=== PATIENT | female | born 1940 | race Caucasian/White ===

== ENCOUNTER 2020-04-16 15:25 | Inpatient (IN) | payer MEDICARE ==
[~2020-04-16] VITALS: Ht 147.3 cm; Wt 98.3 kg
[2020-04-16 16:27] LABS: ALANINE AMINOTRANSFERASE 55 U/L (12-78); ALBUMIN 3.4 g/dL (3.4-5.0); ANION GAP 12 mmol/L (5-15); CALCIUM 8.6 mg/dL (8.5-10.1); CHLORIDE 100 mmol/L (98-107)
[2020-04-16 16:30] LABS: ALKALINE PHOSPHATASE 111 U/L (45-117); BILIRUBIN,TOTAL 0.5 mg/dL (0.2-1.0); TOTAL PROTEIN 7.9 g/dL (6.4-8.2)
[2020-04-16] MEDS ORDERED: ONDANSETRON 2MG/ML, 2ML IVPush ONE (16:30)
[2020-04-16] MEDS ORDERED: SODIUM CHLORIDE 0.9% 1,000ML IVBOLUS ONE ×2 (16:30→18:30)
[2020-04-16] MEDS ORDERED: SODIUM CHLORIDE FLUSH 10ML SYR IVF ONE (16:30)
[2020-04-16 16:33] LABS: MICROSCOPIC INDICATED
[2020-04-16 16:36] LABS: BASOPHILS # (AUTO) 0.03 x10^3/uL (0-0.1); BASOPHILS % (AUTO) 0 % (0-1); EOSINOPHILS # (AUTO) 0.09 x10^3/uL (0-0.4); EOSINOPHILS % (AUTO) 1 % (1-7); LYMPHOCYTES # (AUTO) 1.67 x10^3/uL (1-3.4); LYMPHOCYTES % (AUTO) 22 % (22-44); MD NO; MEAN CORPUSCULAR HEMOGLOBIN 29.7 pg (27.0-34.8); MEAN CORPUSCULAR HGB CONC 32.6 g/dL (32.4-35.8); MEAN PLATELET VOLUME 9.4 fL (7.4-10.4); MONOCYTES # (AUTO) 0.61 x10^3/uL (0.2-0.8); MONOCYTES % (AUTO) 8 % (2-9); NEUTROPHILS # (AUTO) 5.13 x10^3/uL (1.8-6.8); NEUTROPHILS % (AUTO) 68 % (42-75); PLATELET COUNT 224 x10^3/uL (130-400); RED BLOOD COUNT 5.03 x10^6/uL (3.82-5.3); RED CELL DISTRIBUTION WIDTH 14.2 % (9.6-15.2)
[2020-04-16] MEDS ORDERED: ONDANSETRON 2MG/ML, 2ML ONE (16:40)
--- NOTE | 2020-04-16 16:42 | NUR ---
PLACED ON MONITOR, NSR, VSS. IV STARTED LABS SENT, IVF 500 PER ORDER. URINE SENT. PT A/OX4, SLIGHT NASUEATED, MEDICATED PER ORDER. NAD. WILL CONTINUE TO MONITOR. AIDET PROVIDED.
--- NOTE | 2020-04-16 17:30 | NUR ---
LAB HERE DRAWING, ABG AND REPEAT LABS.
[2020-04-16 17:42] LABS: PH, VENOUS 7.138 pH (7.320-7.420)
[2020-04-16] MEDS ORDERED: SULF1TAB23 PO (17:46)
[2020-04-16] MEDS ORDERED: TAMS-11 PO (17:48)
[2020-04-16] MEDS ORDERED: ROSU40TA PO (17:50)
[2020-04-16] MEDS ORDERED: VITAMIN D3 (17:59)
[2020-04-16] MEDS ORDERED: CALC600T23 PO (17:59)
[2020-04-16] MEDS ORDERED: HUMALOG PUMP (18:00)
[2020-04-16] MEDS ORDERED: VITAMIN C PO (18:01)
[2020-04-16] MEDS ORDERED: GLUC3SPR NS (18:01)
[2020-04-16 18:02] LABS: FIO2 ROOM AIR %
[2020-04-16] MEDS ORDERED: CARV6.2512 PO (18:02)
[2020-04-16] MEDS ORDERED: CPAP (18:02)
[2020-04-16] MEDS ORDERED: ASPI81TA45 PO (18:04)
--- NOTE | 2020-04-16 18:17 | NUR ---
PT WITH PERIODS OF CONFUSION, WANTING TO PUT HER INSULIN PUMP BACK ON. CALLED WILL [employer] ST[employer]ER INSULIN AND PUMP. INFORMED PT TO STAY. ADIET PROVIDED.
[2020-04-16 18:32] LABS: ACETONE, SERUM Moderate(40mg/dL) (Negative)
--- NOTE | 2020-04-16 19:59 | NUR ---
BG 445
[2020-04-16] MEDS ORDERED: ONDANSETRON 2MG/ML, 2ML IVPush PRN (20:00)
[2020-04-16] MEDS ORDERED: ACETAMINOPHEN 325 MG TABLET PO PRN (20:00)
[2020-04-16] MEDS ORDERED: BISACODYL 10 MG SUPP PR PRN (20:00)
[2020-04-16] MEDS: SODIUM CHLORIDE 0.9% 1,000 ML IV SCH (20:00)
[2020-04-16] MEDS ORDERED: INSULIN LISPRO SINGLE DOSE, ER SQ-INSULIN ONE (20:11)
[2020-04-16 20:19] LABS: ANION GAP 13 mmol/L (5-15); CALCIUM 7.7 mg/dL (8.5-10.1); CHLORIDE 102 mmol/L (98-107); CREATININE 5.76 mg/dL (0.55-1.02)
--- NOTE | 2020-04-16 20:26 | NUR ---
SPOKE WITH HUONG Roa NP (HOSPITALIST). PROVIDER IS AWARE OF FSBS 445, WANTS 15 UNITS SUBQ GIVEN.
[2020-04-16] MEDS: INSULIN LISPRO 100 UNITS/ML, PEN SQ-INSULIN SCH (20:46)
--- NOTE | 2020-04-16 21:31 | NUR ---
REPEAT BG 541, CALLED DRAKE BORJA INFORMED. CONCERNED IF PT GOT ENTIRE DOES OF INSULIN PEN. NO FURTHER ORDERS. WILL CALL REPORT.
--- NOTE | 2020-04-16 21:40 | NUR ---
REPORT TO KIARA CARRION ON FLOOR. INFORMED HIM OF MY CONCERN RE THE BG AND MY DISCUSSION WITH THE CARD PUNCHER.
[2020-04-16 22:24] VITALS: BP 150/65
[2020-04-16] MEDS: ATORVASTATIN 80 MG TABLET PO SCH (22:49)
[2020-04-16] MEDS: CARVEDILOL 6.25 MG TABLET PO SCH (22:49)
[2020-04-16] MEDS: HEPARIN 5,000 UNITS/ML, 1ML SQ SCH (22:49)
[2020-04-17] MEDS: INSULIN LISPRO 100 UNITS/ML, PEN SQ-INSULIN SCH ×5 (00:37→20:28)
[2020-04-17 01:16] VITALS: BP 136/54
[2020-04-17 01:26] LABS: CHLORIDE,URINE RANDOM 76 mmol/L; POTASSIUM,URINE RANDOM 15 mmol/L; SODIUM,URINE RANDOM 83 mmol/L
[2020-04-17] MEDS ORDERED: INSULIN GLARGINE 100 UNITS/ML, PEN SQ-INSULIN ONE (02:00)
[2020-04-17] MEDS: SODIUM CHLORIDE 0.9% 1,000 ML IV SCH ×4 (03:47→20:00)
[2020-04-17] MEDS: HEPARIN 5,000 UNITS/ML, 1ML SQ SCH ×3 (04:00→20:27)
[2020-04-17 05:36] LABS: BASOPHILS # (AUTO) 0.02 x10^3/uL (0-0.1); BASOPHILS % (AUTO) 0 % (0-1); EOSINOPHILS # (AUTO) 0.06 x10^3/uL (0-0.4); EOSINOPHILS % (AUTO) 1 % (1-7); LYMPHOCYTES # (AUTO) 1.27 x10^3/uL (1-3.4); LYMPHOCYTES % (AUTO) 15 % (22-44); MD NO; MEAN CORPUSCULAR HEMOGLOBIN 29.6 pg (27.0-34.8); MEAN CORPUSCULAR HGB CONC 32.6 g/dL (32.4-35.8); MEAN PLATELET VOLUME 8.9 fL (7.4-10.4); MONOCYTES # (AUTO) 0.89 x10^3/uL (0.2-0.8); MONOCYTES % (AUTO) 11 % (2-9); NEUTROPHILS # (AUTO) 6.04 x10^3/uL (1.8-6.8); NEUTROPHILS % (AUTO) 73 % (42-75); PLATELET COUNT 189 x10^3/uL (130-400); RED BLOOD COUNT 4.34 x10^6/uL (3.82-5.3)
[2020-04-17 05:41] LABS: CHLORIDE 105 mmol/L (98-107)
[2020-04-17 05:44] LABS: ANION GAP 12 mmol/L (5-15); CALCIUM 7.9 mg/dL (8.5-10.1); CREATININE 5.91 mg/dL (0.55-1.02)
[2020-04-17 07:06] VITALS: BP 113/64
[2020-04-17] MEDS: CALCIUM CARBONATE 500 MG TABLET PO SCH (08:34)
[2020-04-17] MEDS: TAMSULOSIN 0.4 MG CAP.ER.24H PO SCH (08:34)
[2020-04-17] MEDS: CARVEDILOL 6.25 MG TABLET PO SCH ×2 (08:34→20:28)
[2020-04-17] MEDS: ASCORBIC ACID 500 MG TABLET PO SCH (08:34)
[2020-04-17] MEDS: INSULIN GLARGINE 100 UNITS/ML, PEN SQ-INSULIN SCH ×2 (08:36→20:30)
[2020-04-17] MEDS ORDERED: ASPIRIN 81 MG TABLET EC PO SCH (09:00)
[2020-04-17 12:23] LABS: ANION GAP 8 mmol/L (5-15); CALCIUM 7.4 mg/dL (8.5-10.1); CHLORIDE 109 mmol/L (98-107); CREATININE 5.62 mg/dL (0.55-1.02)
[2020-04-17 12:38] VITALS: BP 100/53
[2020-04-17] MEDS: ATORVASTATIN 80 MG TABLET PO SCH (20:28)
[2020-04-17] MEDS ORDERED: INSULIN GLARGINE 100 UNITS/ML, PEN SQ-INSULIN SCH (21:00)
[2020-04-17 21:03] VITALS: BP 123/63
[2020-04-18] MEDS: SODIUM CHLORIDE 0.9% 1,000 ML IV SCH ×2 (01:00→06:00)
[2020-04-18 01:39] VITALS: BP 102/58
[2020-04-18] MEDS: HEPARIN 5,000 UNITS/ML, 1ML SQ SCH ×3 (04:00→21:25)
[2020-04-18 05:36] LABS: BASOPHILS # (AUTO) 0.03 x10^3/uL (0-0.1); BASOPHILS % (AUTO) 1 % (0-1); CALCIUM 7.3 mg/dL (8.5-10.1); CHLORIDE 116 mmol/L (98-107); EOSINOPHILS # (AUTO) 0.24 x10^3/uL (0-0.4); EOSINOPHILS % (AUTO) 3 % (1-7); LYMPHOCYTES # (AUTO) 1.83 x10^3/uL (1-3.4); LYMPHOCYTES % (AUTO) 25 % (22-44); MD NO; MEAN CORPUSCULAR HEMOGLOBIN 29.7 pg (27.0-34.8); MEAN CORPUSCULAR HGB CONC 32.7 g/dL (32.4-35.8); MEAN PLATELET VOLUME 8.7 fL (7.4-10.4); MONOCYTES # (AUTO) 0.77 x10^3/uL (0.2-0.8); MONOCYTES % (AUTO) 11 % (2-9); NEUTROPHILS # (AUTO) 4.34 x10^3/uL (1.8-6.8); NEUTROPHILS % (AUTO) 60 % (42-75); PLATELET COUNT 184 x10^3/uL (130-400); RED BLOOD COUNT 3.98 x10^6/uL (3.82-5.3); RED CELL DISTRIBUTION WIDTH 14.3 % (9.6-15.2)
[2020-04-18 05:40] LABS: ALBUMIN 2.5 g/dL (3.4-5.0); ANION GAP 8 mmol/L (5-15); CREATININE 5.03 mg/dL (0.55-1.02)
[2020-04-18 06:54] VITALS: BP 122/67
[2020-04-18] MEDS: INSULIN LISPRO 100 UNITS/ML, PEN SQ-INSULIN SCH ×4 (07:00→21:00)
[2020-04-18] MEDS ORDERED: INSULIN GLARGINE 100 UNITS/ML, PEN SQ-INSULIN SCH ×2 (09:00→17:30)
[2020-04-18] MEDS: CALCIUM CARBONATE 500 MG TABLET PO SCH (09:04)
[2020-04-18] MEDS: TAMSULOSIN 0.4 MG CAP.ER.24H PO SCH (09:04)
[2020-04-18] MEDS: CARVEDILOL 6.25 MG TABLET PO SCH ×2 (09:04→21:24)
[2020-04-18] MEDS: ASCORBIC ACID 500 MG TABLET PO SCH (09:04)
[2020-04-18] MEDS ORDERED: D5%-0.45NACL+KCL 20MEQ 1,000 ML IV SCH (11:30)
[2020-04-18 12:11] VITALS: BP 117/51
[2020-04-18 21:22] VITALS: BP 137/68
[2020-04-18] MEDS: ATORVASTATIN 80 MG TABLET PO SCH (21:24)
[2020-04-19 05:23] VITALS: BP 111/55
[2020-04-19] MEDS: HEPARIN 5,000 UNITS/ML, 1ML SQ SCH ×3 (05:26→21:09)
[2020-04-19 06:05] LABS: ALBUMIN 2.6 g/dL (3.4-5.0); ANION GAP 8 mmol/L (5-15); CALCIUM 7.8 mg/dL (8.5-10.1); CHLORIDE 115 mmol/L (98-107)
[2020-04-19 06:10] LABS: ALANINE AMINOTRANSFERASE 39 U/L (12-78); ALKALINE PHOSPHATASE 78 U/L (45-117); BILIRUBIN,TOTAL 0.6 mg/dL (0.2-1.0); CREATININE 4.16 mg/dL (0.55-1.02); TOTAL PROTEIN 6.2 g/dL (6.4-8.2)
[2020-04-19] MEDS: INSULIN LISPRO 100 UNITS/ML, PEN SQ-INSULIN SCH ×4 (07:00→21:09)
[2020-04-19 07:09] VITALS: BP 123/60
[2020-04-19] MEDS: CALCIUM CARBONATE 500 MG TABLET PO SCH (08:18)
[2020-04-19] MEDS: CARVEDILOL 6.25 MG TABLET PO SCH ×2 (08:18→21:08)
[2020-04-19] MEDS: TAMSULOSIN 0.4 MG CAP.ER.24H PO SCH (08:18)
[2020-04-19] MEDS: ASCORBIC ACID 500 MG TABLET PO SCH (08:18)
[2020-04-19] MEDS ORDERED: INSULIN GLARGINE 100 UNITS/ML, PEN SQ-INSULIN SCH ×2 (09:00→21:00)
[2020-04-19 12:30] VITALS: BP 126/62
[2020-04-19 18:46] VITALS: BP 156/76
[2020-04-19] MEDS: ATORVASTATIN 80 MG TABLET PO SCH (21:08)
[2020-04-20 01:08] VITALS: BP 121/71
[2020-04-20 05:12] LABS: ANION GAP 7 mmol/L (5-15); CALCIUM 8.1 mg/dL (8.5-10.1); CHLORIDE 113 mmol/L (98-107)
[2020-04-20 05:13] LABS: CREATININE 3.76 mg/dL (0.55-1.02)
[2020-04-20] MEDS: HEPARIN 5,000 UNITS/ML, 1ML SQ SCH ×2 (05:30→14:02)
[2020-04-20 07:03] VITALS: BP 120/75
[2020-04-20] MEDS: CALCIUM CARBONATE 500 MG TABLET PO SCH (08:15)
[2020-04-20] MEDS: ASCORBIC ACID 500 MG TABLET PO SCH (08:15)
[2020-04-20] MEDS: TAMSULOSIN 0.4 MG CAP.ER.24H PO SCH ×2 (08:15→09:00)
[2020-04-20] MEDS: CARVEDILOL 6.25 MG TABLET PO SCH (08:15)
[2020-04-20] MEDS: INSULIN LISPRO 100 UNITS/ML, PEN SQ-INSULIN SCH ×3 (09:21→17:31)
[2020-04-20 12:51] VITALS: BP_SYST 115; BP_SYST 142; BP_DIAS 69; BP_DIAS 70
== END 2020-04-20 20:04 | disposition home or self-care (01) | DRG 637 ==
LOC: ED 18:22 → EDIP 20:35 → 3N 22:18
PROVIDERS: ADMIT Internal Medicine; ATTEND Internal Medicine
DX: E11.10 Type 2 diabetes mellitus with ketoacidosis without coma (principal); N17.0 Acute kidney failure with tubular necrosis; E87.1 Hypo-osmolality and hyponatremia; D64.9 Anemia, unspecified; E86.0 Dehydration; K59.00 Constipation, unspecified; Z79.4 Long term (current) use of insulin; Z96.41 Presence of insulin pump (external) (internal); G47.30 Sleep apnea, unspecified; E11.649 Type 2 diabetes mellitus with hypoglycemia without coma; E86.1 Hypovolemia; E87.6 Hypokalemia
CPT/HCPCS: 36415; 80048; 80053; 80069; 81001; 82010; 82436; 82570; 82803; 82947; 82962; 83036; 83735; 84133; 84300; 85025; 87086; 93005; 96361; 96374; G0378; J1644; J2405; 92523-GN; J1815; J3480; J7030

== ENCOUNTER → 2020-08-09 | Outpatient (CLI) | payer MEDICARE ==
[~2020-08-09] MED LIST: ASPI81TA45 PO; CALC600T23 PO; CARV6.2512 PO; CPAP; GLUC3SPR NS; HUMALOG PUMP; ROSU40TA PO; SULF1TAB23 PO; TAMS-11 PO; VITAMIN C PO; VITAMIN D3
== END | disposition home or self-care (01) ==
LOC: RAD 16:16
PROVIDERS: ATTEND Surgery
DX: E87.1 Hypo-osmolality and hyponatremia (principal); N17.9 Acute kidney failure, unspecified; E87.2 Acidosis; E78.5 Hyperlipidemia, unspecified; E55.9 Vitamin D deficiency, unspecified; D64.9 Anemia, unspecified
CPT/HCPCS: 76770